=== PATIENT | female | born 1985 ===

== ENCOUNTER 2020-11-06 20:47 | Emergency (ER) | payer SELFPAY ==
[~2020-11-06] VITALS: Ht 157.5 cm; Wt 60.0 kg
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
--- NOTE | 2020-11-06 20:59 | NUR ---
SHELLY VANN (BROTHER IN LAW) [phone], WANTS ANY UPDATES AND STATES HE HAS INFO ON PT
[2020-11-06 21:24] LABS: BASOPHILS % (AUTO) 0 % (0-1); EOSINOPHILS % (AUTO) 1 % (1-7); LYMPHOCYTES % (AUTO) 25 % (22-44); MEAN CORPUSCULAR HEMOGLOBIN 31.6 pg (27.0-34.8); MEAN CORPUSCULAR HGB CONC 33.9 g/dL (32.4-35.8); MEAN PLATELET VOLUME 9.1 fL (7.4-10.4); MONOCYTES % (AUTO) 7 % (2-9); NEUTROPHILS % (AUTO) 67 % (42-75); PLATELET COUNT 283 x10^3/uL (130-400); RED BLOOD COUNT 3.93 x10^6/uL (3.82-5.3); RED CELL DISTRIBUTION WIDTH 13.1 % (9.6-15.2)
[2020-11-06 21:30] LABS: ALBUMIN 3.3 g/dL (3.4-5.0); ANION GAP 8 mmol/L (5-15); CALCIUM 8.3 mg/dL (8.5-10.1); CHLORIDE 113 mmol/L (98-107)
[2020-11-06 21:31] LABS: MD NO
[2020-11-06 21:32] LABS: SALICYLATE LEVEL < 1.7 mg/dL (2.8-20.0)
[2020-11-06 21:35] LABS: ALANINE AMINOTRANSFERASE 35 U/L (12-78); ALKALINE PHOSPHATASE 79 U/L (45-117); BILIRUBIN,TOTAL 0.2 mg/dL (0.2-1.0); TOTAL PROTEIN 6.7 g/dL (6.4-8.2)
[2020-11-06] MEDS ORDERED: HALOPERIDOL 5 MG/ML IM ONE (22:00)
[2020-11-06] MEDS ORDERED: HALOPERIDOL 5 MG/ML ONE (22:01)
--- NOTE | 2020-11-06 22:07 | NUR ---
PT INCREASINGLY AGITATED IN ROOM, PULLING AT ALL MONITORING AND PIV. PT PULLED OUT OWN PIV, BLEEDING CONTROLLED. PT STANDING UP IN ROOM CONTINUALLY STATING "I NEED TO LEAVE, WHY CAN'T I LEAVE I AM READY TO GO. PLEASE DON'T KEEP ME HERE". PT RETURNED TO BED AND ABLE TO FOLLOW COMMANDS.
--- NOTE | 2020-11-06 22:20 | NUR ---
PT AMBULATORY WITH STEADY GAIT TO BATHROOM. ONCE FINISHED IN BATHROOM, PT RAN THROUGH ED YELLING "I AM LEAVING, I'M READY TO GET OUT OF HERE", PT ELOPED FROM DEPARTMENT. PT A&OX4, AMBULATORY WITH STEADY GAIT. SECURITY CALLED TO ATTEMPT TO FIND PT, UNABLE TO FIND PT ON HOSPITAL GROUNDS. ERP AWARE.
--- NOTE | 2020-11-06 22:30 | NUR ---
PT FOUND BY [facility] IN ED LOBBY, PT RETURNED TO ROOM. SLEEPING AND RESTING CALMLY ON GURNEY. SITTER AT BEDSIDE.
--- NOTE | 2020-11-06 22:38 | NUR ---
SHELLY. BROTHER IN LAW, MAIN POINT OF CONTACT IN JO: [phone] MAYRA SISTER IN LAW: [phone]
[2020-11-06 23:01] VITALS: BP 90/58
[2020-11-06 23:08] LABS: AMPHETAMINE SCREEN, URINE Negative (Negative); BARBITURATE SCREEN, URINE Negative (Negative); BENZODIAZEPINE SCREEN, URINE Positive (Negative); CANNABINOID SCREEN, URINE Negative (Negative); COCAINE SCREEN, URINE Negative (Negative); METHADONE SCREEN, URINE Negative (Negative); OPIATE SCREEN, URINE Negative (Negative)
--- NOTE | 2020-11-07 01:08 | NUR ---
[facility] RN: RN SPOKE WITH PT BROTHER IN LAW, SHELLY. HE IS ON HIS WAY TO PICK HER UP. PT TO BE DC'D.
--- NOTE | 2020-11-07 01:37 | NUR ---
Patient given discharge instructions and they have confirmed that they understand the instructions. Patient ambulatory with steady gait to family car from ED. Discussion with family regarding d/c instructions and when appropriate to return to ED. Pt A&ox4 at d/c, conversing with staff appropriately and ambulatory with steady gait.
== END 2020-11-07 01:41 | disposition home or self-care (01) ==
LOC: ED 11-07 01:00
DX: G31.2 Degeneration of nervous system due to alcohol (principal); F10.120 Alcohol abuse with intoxication, uncomplicated; Z72.9 Problem related to lifestyle, unspecified; R41.82 Altered mental status, unspecified; Y90.0 Blood alcohol level of less than 20 mg/100 ml; R00.0 Tachycardia, unspecified
CPT/HCPCS: 36415; 80053; 80299; 80307; 80320; 80329; 84703; 85025; 96372; 99283; J1630; G0480